=== PATIENT | male | born 1965 | race Caucasian/White ===

== ENCOUNTER 2023-09-01 16:25 | Emergency (ER) | payer OTHER, SELFPAY ==
[2023-09-01] VITALS (10 sets, daily range): BP systolic 119–151; BP diastolic 58–81; PULSE 77–87; BMI 33.9
[2023-09-01 16:39] LABS: % Basophils 0.3 % (0-2); % Eosinophils 0.6 % (0-6); % Immature Granulocytes 0.1 % (0-0.5); % Monocytes 5.4 % (1.7-9.3); % Neutrophils 83.6 % (42.2-75.2); Absolute Lymphocytes 0.7 10^3/uL (1.2-3.4); Absolute Monocytes 0.4 10^3/uL (0.1-0.6); Absolute Neutrophils 5.9 10^3/uL (1.4-6.5); Hematocrit 39.5 % (39.0-52.0); Hemoglobin 13.8 g/dL (13.0-18.0); Mean Corp Hgb Conc. 34.9 g/dL (33.0-37.0); Mean Corpuscular Hgb 29.8 pg (27.0-31.0); Mean Corpuscular Volume 85.3 fL (80.0-94.0); Mean Platelet Volume 10.8 fL (7.4-10.4); Nucleated Red Blood Cells % 0 % (-); Platelet Count 148 10^3/uL (130-400); Red Blood Cell Count 4.63 10^6/uL (4.70-6.10); White Blood Cell Count 7.1 10^3/uL (4.8-10.8)
[2023-09-01 16:54] LABS: ALT (SGPT) 25 U/L (0-50); AST (SGOT) 30 U/L (17-59); Albumin 3.8 g/dl (3.5-5.0); Alkaline Phosphatase 69 U/L (38-126); Blood Urea Nitrogen 13 mg/dl (9-20); Calcium 8.4 mg/dl (8.4-10.2); Carbon Dioxide 28 mmol/L (22-30); Chloride 104 mmol/L (98-107); Estimated Creatinine Clearance 118 ml/min; Glucose 109 mg/dl (70-99); Potassium 3.7 mmol/L (3.5-5.1); Sodium 139 mmol/L (135-145); Total Bilirubin 0.6 mg/dl (0.2-1.3); Total Protein 6.7 g/dl (6.3-8.2); eGFR > 60.00
[2023-09-01] MEDS: NSS 1000 IV ×2 (19:27→19:29)
--- NOTE | 2023-09-01 20:01 | ED.GENMED ---
History of Present Illness
General
Chief Complaint: Fainting/Passed Out
Source: patient and spouse
Exam Limitations: none
Time Seen by Provider: 09/01/23 18:33
Nursing documentation reviewed up to this point in time: agreed with
Travel History
Have you had any contact with someone who has COVID-19?: No
Do you have any symptoms of coronavirus? Fever > 100 degrees, chills, cough, shortness of breath, sore throat, loss of taste or smell, muscle aches, or headache?: No
History of Present Illness
History of Present Illness:
Patient without any significant past medical history, presents to ED secondary to witnessed syncopal episode while being evaluated at urgent care center this afternoon. Patient states that he has had 3-day history of severe nasal congestion,
postnasal drip, along with decreased appetite, as well as fever of 101. While being evaluated at urgent care center, and sitting position, he felt extreme dizzy sensation, and subsequently lost consciousness for few seconds. Shortly afterwards,
911 was called by urgent care center. As patient set up to be put on the stretcher, patient once again experienced similar dizziness and passed out for few seconds again. At the time of evaluation ED, patient reports feeling fatigued and tired.
Denies chest pain or shortness of breath. Denies headache. Denies nausea, vomiting, or diarrhea.
Review of Systems
Review of Systems
Allergies reviewed?: Yes
All Other Systems: ROS reviewed and negative except as documented in HPI and ROS
Constitutional: Reports no symptoms
EENT: Reports sore throat, runny nose and other (Nasal congestion and postnasal drip)
Respiratory: Reports cough
Cardiac: Reports syncope; Denies chest pain, diaphoresis or palpitations
ABD/GI: Reports other (Decrease oral intake)
: Reports no symptoms
Musculoskeletal: Reports no symptoms
Skin: Reports no symptoms
Neurological: Reports weakness
Phy Exam
Physical Exam
Physical Exam:
Physical Exam
General: mild distress, not acutely ill. afebrile.
Head: nc/at. eomi
Neck: supple. no meningeal signs.
Heart: s1/s2 regular rate and rhythm, no murmur. equal radial pulses.
Lungs: no acute respiratory distress. clear bilaterally
Abdomen: normal bowel sounds. not tender.
Neuro: alert and oriented. no focal neurological deficits
Skin: no rash
Psychiatric: well kept. interactive and cooperative
Extremities: no edema. no calf tenderness.
Course
Orders/Labs/Results
Orders:
Orders
09/01/23 16:31
Electrocardiogram (*1) Urgent
Reason for Study: Syncope
EKG- Treatment ONCE
09/01/23 16:35
Complete Blood Count/With Diff Urgent
Comprehensive Metabolic Panel Urgent
09/01/23 18:56
Orthostatic VS- Treatment ONCE
09/01/23 19:08
0.9% Sodium Chloride 1000 ml [Nss] 1,000 ml IV BOLUS
09/01/23 19:12
0.9% Sodium Chloride 1000 ml [Nss] 1,000 ml IV BOLUS
Abnormal Lab Results
09/01/23
16:35
RBC 4.63 L 10^6/uL
(4.70-6.10)
MPV 10.8 H fL
(7.4-10.4)
Absolute Lymphs (auto) 0.7 L 10^3/uL
(1.2-3.4)
Neutrophils % 83.6 H %
(42.2-75.2)
Lymphocytes % 10.0 L %
(20.5-51.1)
Glucose 109 H mg/dl
(70-99)
09/01/23 16:35
09/01/23 16:35
Vital Signs
Initial and Last Documented VS:
Initial Vital Signs
Temp Pulse Resp BP Pulse Ox
98.6 F 78 16 123/62 98
09/01/23 16:28 09/01/23 16:28 09/01/23 16:28 09/01/23 16:28 09/01/23 16:28
Last Documented Vital Signs
Temp Pulse Resp BP Pulse Ox
98.6 F 79 26 151/75 97
09/01/23 16:28 09/01/23 20:30 09/01/23 20:30 09/01/23 20:00 09/01/23 20:30
MDM/Problems Addressed
MDM/Problems Addressed:
History and exam consistent with likely vasovagal response from recent illness and subsequent dehydration. Patient given IV fluids with improvement in symptoms. Patient otherwise is hemodynamically stable and neurologically intact, at time of
discharge to the care of his spouse. Advised increase fluid intake as well as meals at home. Recommended PCP follow-up as an outpatient next week.
*Critical Care Note
Total Time (30-74mins, 75-104mins- exclusive of procedures): Not Applicable
ED Attending Note
-
Portions of this chart may have been created with voice recognition software.� Occasional wrong word or��sound alike� substitutions may have occurred due to the inherent limitations of voice recognition software.
Discharge Plan
Departure
Patient Disposition: Home (Routine Discharge)
Date of Disposition: 09/01/23
Time of Disposition: 20:47
Patient with high blood pressure during this ER visit?: Yes
Condition: Good
Discharge Problem:
Viral syndrome, Vasovagal syncope
Instructions: Vasovagal Response (DC), Upper Respiratory Infection - Adult
Referrals:
UNKNOWN - PT DOES,NOT KNOW [Family Provider] -
Activity Restrictions/Additional Instructions:
As discussed, please follow-up with your primary care physician with any further concerns. In the meantime, strongly recommend increasing fluid intake as well as caloric intake, as overall dehydration may have contributed to your symptoms today.
Interventions
Interventions:
*Risk Screen - Suicide Last Done: 09/01/23 16:32
*General Assessment Last Done: 09/01/23 16:32
*Neglect/Abuse Screening Last Done: 09/01/23 16:32
ED- Fall Risk Assessment Last Done: 09/01/23 20:07
*ED COVID-19 Vaccine History Last Done: 09/01/23 16:32
*Nursing Disposition Last Done: 09/01/23 20:54
ED- Cardiac Assessment Last Done: 09/01/23 16:44
ED- Neurological Assessment Last Done: 09/01/23 16:44
Discharge Date and Time
Discharge Date/Time: 09/01/23 20:54
Print Language: PERSIAN
== END 2023-09-01 20:54 | disposition home or self-care (01) ==
LOC: EMR 16:25
PROVIDERS: Emergency Medicine; EMERGENCY PHYSICIAN Emergency Medicine
DX: B34.9 Viral infection, unspecified (principal); R55 Syncope and collapse
CPT/HCPCS: 99283; 96360; 96361; 80053; 85025; 93005